=== PATIENT | male | born 1990 | race Caucasian/White ===

== ENCOUNTER 2020-04-19 18:31 | Emergency (ER) | payer SELFPAY ==
[2020-04-19 18:37] VITALS: BP 154/86; PULSE 99; RESP 20; O2SAT 98; BMI 32.3
--- NOTE | 2020-04-19 18:53 | US_ITS ---
PROCEDURE: US TESTICULAR CLINICAL INDICATION: Scrotal pain/swelling. R/O TORSION COMPARISON: No exams were available for comparison FINDINGS: Duplex and color flow imaging as well as real-time grayscale imaging of the scrotum and testicles was performed. The right testicle measures 5.2 x 2.9 x 3.0 centimeter. There is no evidence of intratesticular masses. There is normal intratesticular Doppler blood flow. The there is a mildly enlarged right epididymis with increased Doppler blood flow. There is a trace hydrocele. The left testicle measures 5.3 by 2.7 x 3.2 centimeter. No intratesticular masses or torsion is identified. The left epididymis is mildly enlarged and demonstrate increased Doppler blood flow. There is no significant scrotal wall thickening. IMPRESSION: 1.Mildly enlarged bilateral epididymi seen with increased Doppler blood flow, compatible with acute epididymitis. Please correlate clinically. 2. Trace bilateral hydroceles, which are nonspecific. Dictated by: Michael Qureshi 04/20/2020 09:56 Electronically signed by Michael Qureshi in [place] 04/20/2020 09:56
[2020-04-19 18:59] VITALS: BP 154/86; PULSE 99; RESP 20; TEMP 36.8; O2SAT 98; BMI 32.4
--- NOTE | 2020-04-19 19:43 | HMH.EDUTC ---
[facility] [place] Clinical Impression: Scrotum swelling Disposition: Home, Self-Care Condition on Discharge: Good Instructions: How to Perform a Testicular Self-exam, Epididymitis, DI for Epididymitis, DI for Testicular Pain Additional Instructions: Take medication as prescribed *Make sure to wear supportive underwear, this will help with swelling Call Dr Gonzalez office tomorrow ThursdayApril 20 for appointment for follow up for further evaluation and monitoring of scrotal swelling Return if needed Straight to ER if any life threatening symptoms or any worsening of symptoms including fever, chills etc Over the counter Motrin and/or Tylenol for pain or fever Prescriptions: clindamycin HCL [Clindamycin HCl 300mg Cap] 300 mg PO Q6 10 Days #40 cap Transmission Status: Received by [facility] #[id number] Referrals: PCP,Freida [Primary Care Provider] - As needed Figueroa Madrigal MD [Staff Physician] - As needed (Call office for appointment for follow up and further evaluation) Forms: Work/School Release Time of Disposition: 20:18 Medical Decision Making - Hank Inquiry Pt receiving controlled substance: Freida Mckinney was queried for this patient: No Vital Signs: 04/19/20 18:37 04/19/20 18:59 04/19/20 20:11 Temperature 98.2 F 98.2 F Temperature Source Oral Pulse Rate 99 H Pulse Rate [Left Radial] 99 H 99 H Respiratory Rate 20 20 20 Blood Pressure 154/86 H Blood Pressure [Right Arm] 154/86 H 154/86 H Blood Pressure Mean [Right Arm] 108 108 Blood Pressure Source [Right Arm] Automatic Cuff Blood Pressure Position [Right Arm] Sitting 02 Sat by Pulse Oximetry 98 98 Oxygen Delivery Method Room Air Room Air - Lab Data Lab results reviewed: Yes: I reviewed the patient's lab results. Lab Results 04/19/20 19:56: Urine Color Dark yellow, Urine Appearance Clear, Urine pH 5.5, Ur Specific [place] 1.030, Urine Protein Trace, Urine Glucose (UA) Negative, Urine Ketones Trace, Urine Blood Negative, Urine Nitrate Negative, Urine Bilirubin Trace, Urine Urobilinogen 0.2, Ur Leukocyte Esterase Negative Orders (Tests/Meds): ED MEDICATIONS Discontinued Medications Generic Name Dose Route Start Last Admin Trade Name Freq PRN Reason Stop Dose Admin Azithromycin 1,000 mg 04/19/20 19:46 04/19/20 19:57 Zithromax 250mg Tablet PO 04/19/20 19:47 1,000 mg ONCE ONE Administration Protocol Ceftriaxone Sodium 1 gm 04/19/20 19:46 04/19/20 19:57 Rocephin 1gm Vial IM 04/19/20 19:47 1 gm ONCE ONE Administration Protocol Lidocaine HCl 0 ml 04/19/20 19:46 04/19/20 19:57 Lidocaine 1% 10ml Mdv IM 04/19/20 19:47 2.1 ml ONCE ONE Administration ORDERS Category Date Time Status Testicular US [US Testicular] Stat Ultrasound 04/19/20 18:53 Taken - US Data US Images: Other (Testicular) Findings Narrative: Discussed with emission technician, no torsion, no mass, no fluid, inflammation noted Medical Decision Narrative: Discussed with patient to wear tight underwear to support testicles, take medication as prescribed and call Dr Gonzalez office tomorrow morning for appointment for further treatment and evaluation of swelling in scrotal area with redness and warmth Discussed with patient to return immediately to the ER if he started having any scrotal pain, fever chills, or body aches and patient agreed. Patient was given azithromycin and Rocephin in the [facility] to cover common infections associated with epididimytis and then placed on oral clindamycin and will have him follow up with Dr Madrigal to continue medication regimen or change/adjust as needed Medication was discussed with pharmacy and agreed. [facility] [place] - General Stated complaint: Swollen testicles Time Seen by Provider: 04/19/20 18:40 Mode of Arrival: Ambulatory Source of Information: Patient Limitations: No Limitations Description of Symptoms (Recalled from Triage Doc. by RN): PATIENT C/O SWELLING AND ITCHING TO TESTIC
[2020-04-19 20:07] LABS: Apearance,Urine Clear (Clear); Bilirubin,Urine Trace (Negative); Blood, Urine Negative (Negative); Color,Urine Dark Yellow (Yellow); Glucose,Urine (UA) Negative (Negative); Ketones,Urine TRACE (Negative); PH,Urine 5.5 (5.0-8.5); Protein,Urine Trace (Negative); UTC Leukocyte Esterase,Urine Negative (Negative); UTC Nitrate,Urine Negative (Negative); Urobilinogen,Urine 0.2 EU/dl (0.2)
[2020-04-19 20:11] VITALS: BP 154/86; PULSE 99; RESP 20; TEMP 36.8; O2SAT 98
== END 2020-04-19 20:15 | disposition home or self-care (01) ==
PROVIDERS: Emergency Provider Nurse Practitioner
DX: N50.89 Other specified disorders of the male genital organs (principal); F17.210 Nicotine dependence, cigarettes, uncomplicated
CPT/HCPCS: 76870; 81003; 96372; 99202